=== PATIENT | male | born 1985 | race Caucasian/White ===

== ENCOUNTER 2016-09-09 21:37 | Emergency (ER) | payer OTHER ==
[2016-09-09] MEDS ORDERED: ONDANSETRON DISINTEGRATING 4 MG TAB ONE (21:48)
[2016-09-09] MEDS ORDERED: ACETAMINOPHEN 500 MG TAB ONE (21:48)
[2016-09-09] MEDS ORDERED: ONDANSETRON DISINTEGRATING 4 MG TAB PO ONE (21:50)
[2016-09-09] MEDS ORDERED: ACETAMINOPHEN 500 MG TAB PO ONE (21:50)
--- NOTE | 2016-09-09 22:09 | EDPHY ---
H & P Stated Complaint: pain and burning micturation, fever,NV,malaise since tuesday Time Seen by Provider: 09/09/16 21:55 HPI/ROS: Chief Complaint: Fevers, chills, hematuria, pain with urination HPI: 31-year-old male with a past medical history of kidney stones in the past presenting with 4 days of fevers chills body aches, malaise. Patient states symptoms got improved following day. He did notice for the last couple days some pink discoloration of his urine. Did have some vomiting on Tuesday with some nausea today. The this evening has had pain with urination to a 9/10 in his urethra. Does not have any urethral discharge but has noticed a foul odor. No back pain. No abdominal pain. Dry cough which is nonproductive. ROS: 10 point Review of Systems is negative except as noted in the HPI. PMH: Kidney stones Medications: None Allergies: No known drug allergies Social History: No smoking, alcohol about every other day, marijuana once a week Family History: non-contributory Physical Exam: Gen: Awake, Alert, No Distress HEENT: Nose: no rhinorrhea Eyes: PERRLA, EOMI Mouth: Moist mucosa Neck: Supple, no JVD Chest: nontender, lungs clear to auscultation Heart: S1, S2 normal, no murmur Abd: Soft, non-tender, no guarding Back: no CVA tenderness, no midline tenderness Ext: no edema, non-tender Skin: no rash Neuro: CN II-XII intact, Sensation grossly intact, Strength 5/5 in bilateral upper and lower extremities - Personal History Current Tetanus Diphtheria and Acellular Pertussis (TDAP): Yes - Medical/Surgical History Hx Asthma: No Hx Chronic Respiratory Disease: No Hx Diabetes: No Hx Cardiac Disease: No Hx Renal Disease: No Hx Cirrhosis: No Hx Alcoholism: No Hx HIV/AIDS: No Hx Splenectomy or Spleen Trauma: No Other PMH: denies - Social History Smoking Status: Never smoked Constitutional: Initial Vital Signs Temperature (C) 39.1 C H 09/09/16 21:41 Heart Rate 117 H 09/09/16 21:41 Respiratory Rate 20 09/09/16 21:41 Blood Pressure 109/68 09/09/16 21:41 O2 Sat (%) 95 09/09/16 21:41 O2 Delivery Mode Room Air Allergies/Adverse Reactions: No Known Allergies Allergy (Unverified 09/09/16 21:41) Home Medications: Medication Instructions Recorded Cephalexin [Keflex (*)] 500 mg PO Q6H #28 cap 09/09/16 Medical Decision Making ED Course/Re-evaluation: Patient with viral symptoms and positive UTI. He is well-appearing. He is febrile to 39 here with a heart rate of 96. Blood pressure is appropriate. He is otherwise very well appearing. Will give a dose of IV ceftriaxone and send him home on oral Keflex. Will send urine cultures. He will follow up with his primary care physician on Tuesday to follow the culture results and possible referral to Urology. He will return sooner for increasing fevers chills, weakness, nausea, vomiting, or any other concerns. - Data Points Laboratory Results: 09/09/16 21:53 Urine Color IMANI Urine Appearance HAZY Urine pH 6.0 (5.0-7.5) Ur Specific [place] 1.019 (1.002-1.030) Urine Protein NEGATIVE (NEGATIVE) Urine Ketones 1+ H (NEGATIVE) Urine Blood NEGATIVE (NEGATIVE) Urine Nitrate NEGATIVE (NEGATIVE) Urine Bilirubin NEGATIVE (NEGATIVE) Urine Urobilinogen 4.0 EU H EU (0.2-1.0) Ur Leukocyte Esterase 2+ H (NEGATIVE) Urine RBC 15-25 /hpf H /hpf (0-3) Urine WBC 50-182 /hpf H /hpf (0-3) Ur Epithelial Cells TRACE /lpf /lpf (NONE-1+) Urine Bacteria 4+ /hpf H /hpf (NONE SEEN) Urine Mucus TRACE /lpf /lpf (NONE-1+) Urine Glucose NEGATIVE (NEGATIVE) Medications Given: Discontinued Medications Acetaminophen (Tylenol) 1,000 mg PO EDNOW ONE Stop: 09/09/16 21:51 Last Admin: 09/09/16 21:52 Dose: 1,000 mg Ondansetron HCl (Zofran Odt) 4 mg PO EDNOW ONE Stop: 09/09/16 21:51 Last Admin: 09/09/16 21:50 Dose: 4 mg Departure - Departure Disposition: Home, Routine, Self-Care Clinical Impression: UTI (urinary tract infection) Condition: Good Instructions: Urinary Tract Infection in Men (ED) Additional Instructions: Follow up with primary care physician on Tuesday to confirm her culture results. Alternate ibuprofen with acetaminophen every 4 hours for fevers, chills, aches, or pains. Return to the ER for increasing fevers chills, weakness, nausea, vomiting, or any other concerns. Referrals: Shayne Mccray MD [Primary Care Provider] - As per Instructions Prescriptions: Cephalexin [Keflex (*)] 500 mg PO Q6H #28 cap
[2016-09-09 22:23] LABS: COLOR AMBER; LEUKOCYTE ESTERASE,URINE 2+ (NEGATIVE); NITRITE,URINE NEGATIVE (NEGATIVE)
[2016-09-09 22:26] LABS: BACTERIA 4+ /hpf (NONE SEEN); MUCUS TRACE /lpf (NONE-1+); RBC,URINE 15-25 /hpf (0-3); WBC,URINE 50-182 /hpf (0-3)
[2016-09-09] MEDS ORDERED: CEPHALEXIN 500MG PREPACK#4 BTL TAKEHOME ONE (23:04)
[2016-09-09 23:31] VITALS: BP 116/68; PULSE 86; RESP 14; TEMP 99.3; O2SAT 96
== END 2016-09-09 23:30 | disposition home or self-care (01) ==
DX: N39.0 Urinary tract infection, site not specified (principal); B96.89 Other specified bacterial agents as the cause of diseases classified elsewhere
CPT/HCPCS: 96365; J0696

== ENCOUNTER → 2016-11-30 | Outpatient (CLI) | payer OTHER | LOC: FIMAGING 08:16 | PROVIDERS: ATTEND Specialist | DX: K59.00 Constipation, unspecified (principal); Z87.440 Personal history of urinary (tract) infections ==